=== PATIENT | male | born 1950 | race Caucasian/White ===

== ENCOUNTER 2019-02-25 07:49 | Emergency (ER) | payer SELFPAY, OTHER ==
[2019-02-25] MEDS: KETOROLAC 30 MG INJ IM (08:31)
== END 2019-02-25 08:43 | disposition home or self-care (01) ==
LOC: FTE 08:43
DX: M54.5 Low back pain (principal); I10 Essential (primary) hypertension
CPT/HCPCS: 96372; 99284-25